=== PATIENT | male | born 1945 | race Caucasian/White ===

== ENCOUNTER 2016-05-19 15:11 | Emergency (ER) | payer MEDICARE ==
[~2016-05-19] VITALS: Ht 170.2 cm; Wt 67.2 kg
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
[2016-05-19] MEDS ORDERED: fentaNYL-PF 50 mCg/mL 2 mL Inj ONE (15:15)
[2016-05-19] MEDS ORDERED: 0.9% Sodium Chloride 1,000 ML IV ONE (15:21)
[2016-05-19 15:25] VITALS: BP 160/98; PULSE 63; RESP 18; O2SAT 98
[2016-05-19] MEDS ORDERED: fentaNYL-PF 50 mCg/mL 2 mL Inj IVPUSH ONE (15:25)
[2016-05-19] MEDS ORDERED: Ondansetron 2 mg/mL 2 mL Inj IVPUSH ONE (15:25)
[2016-05-19] MEDS: HYDROmorphone 0.5 mg/0.5 mL iSecure Syringe IVPUSH PRN ×3 (15:52→17:51)
[2016-05-19 15:59] LABS: BASOPHILS % (AUTO) 0.2 % (0-3); EOSINOPHILS % (AUTO) 0.6 % (0-5); MONOCYTES % (AUTO) 4.7 % (4-12); Mean Corpuscular Hemoglobin 29.8 pg (27.0-35.0); Mean Corpuscular Volume 87.7 fL (81-100); NEUTROPHILS % (AUTO) 84.6 % (40-74); Platelet Count 262 bil/L (150-400)
[2016-05-19 16:14] LABS: INR 2.85 ratio
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
--- NOTE | 2016-05-19 16:20 | DRSVH ---
PROCEDURE: X-RAY LEFT FEMUR, TWO VIEWS ([id number]) INDICATIONS: fracture TECHNIQUE: 2 views of the femur were acquired. COMPARISON: None. FINDINGS: Bones: No dislocations. No suspicious bony lesions. The intertrochanteric left hip fracture is par tially visualized at the upper imaging margin but no distal femur fracture is seen. The articular ackerman rfaces and condyles of the distal femur on the left is only partially visualized. Soft tissues: No suspicious soft tissue calcifications or masses. IMPRESSION: Limited study as discussed, no fracture through the diaphysis or distal metadiaphyseal ju nction found. Articular surfaces of the knee are not seen through the femoral condyles. Dictated by: Ethan Pacheco M.D. on 05/19/2016 at 16:18 Approved by: Ethan Pacheco M.D. on 05/19/2016 at 16:19
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
[2016-05-19 16:22] VITALS: BP 141/90; PULSE 67; RESP 21; O2SAT 97
[2016-05-19] MEDS ORDERED: Phytonadione (Adult) 10 MG in Dextrose 5%-Pha MIX 50 ML IV ONE (16:35)
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
--- NOTE | 2016-05-19 17:24 | DRSVH ---
PROCEDURE: CT HIP LEFT W/O CONTRAST ([id number]) INDICATIONS: eval fracture pattern TECHNIQUE: Noncontrast 3 mm axial sections acquired through the bony pelvis. Additional 3 mm axial sections acq uired through the symptomatic hip joint, with coronal and sagittal reformats. COMPARISON: None. FINDINGS: Image quality: Excellent. Bones: There is a comminuted intertrochanteric left femoral fracture, which extends with fracture jean paul ne cephalad into the femoral neck. The fracture planes are impacted and by this impaction to a moderate degree. A focal hematoma at the area of trauma is not found. 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 Soft tissues: Bruising along the left hip region is present but not associated with a focal hematoma. IMPRESSION: Comminuted impacted intertrochanteric left femur fracture with fracture planes extending into the low femoral neck, without associated adjacent hematoma. Dictated by: Ethan Pacheco M.D. on 05/19/2016 at 17:16 Approved by: Ethan Pacheco M.D. on 05/19/2016 at 17:22
[2016-05-19 17:44] VITALS: BP 126/78; PULSE 77; RESP 20; O2SAT 98
[2016-05-19 17:51] VITALS: BP 126/78; PULSE 77; RESP 20
== END 2016-05-19 17:57 | disposition short-term general hospital (02) ==
LOC: SED 15:11
DX: S72.142A Displaced intertrochanteric fracture of left femur, initial encounter for closed fracture (principal); V18.0XXA Pedal cycle driver injured in noncollision transport accident in nontraffic accident, initial encounter; Y92.482 Bike path as the place of occurrence of the external cause; Y93.55 Activity, bike riding; Y99.8 Other external cause status; Z98.1 Arthrodesis status; Z86.718 Personal history of other venous thrombosis and embolism; Z79.01 Long term (current) use of anticoagulants
CPT/HCPCS: 36415; 36430; 51701; 70450; 71010; 71260; 73501; 73551; 73560; 73700; 74177; 80053; 85014; 85018; 85025; 85610; 86850; 86927; 96361; 96374; 96375; 96376; 99291; 99292; G0390; J1170; J2060; J2405; J3010; J3430; J7030; P9017; Q9967